=== PATIENT | male | born 1965 | race Caucasian/White ===

== ENCOUNTER → 2022-04-07 10:33 | Outpatient (CLI) | payer OTHER, SELFPAY ==
--- NOTE | ~2022-04-07 | MR_ITS ---
EXAMINATION: MR brain/brain stem wo con DATE: 04/07/2022 11:20 INDICATION: Stroke. Mental status change. TECHNIQUE: Magnetic resonance imaging (MRI) of the brain and brainstem was performed without intraven ous contrast. COMPARISON: None. FINDINGS: There is no intracranial hemorrhage, acute infarction, or abnormal intracranial mass lesion . There is a focus of increased T2-weighted signal intensity in the deep left frontal lobe white jennifer er, which is normal as an isolated finding. The ventricles are normal in size. The orbits are normal. There is mild mucosal thickening in the ethmoid sinuses. The mastoid air cells are normal. IMPRESSION: 1. Normal brain. Reviewed, dictated and finalized at location A. IMPRESSION: 1. Normal brain.
== END ==
PROVIDERS: PCP Family Medicine
DX: G31.84 Mild cognitive impairment of uncertain or unknown etiology (principal); I63.9 Cerebral infarction, unspecified
CPT/HCPCS: 70551